=== PATIENT | female | born 1960 | race Caucasian/White ===

== ENCOUNTER 2022-11-12 10:00 | Outpatient (RCR) | payer BC, SELFPAY ==
--- NOTE | 2022-10-22 18:57 | HP.OTEVAL_ITS ---
Patient's Visit Information Visit Information Visit Information: RAHEL KENNEDY is a 62 year old F, referred to Occupational Therapy by YOUNG RODRIGUEZ, with a diagnosis of Lymphedema as a result of obesity. Date of Evaluation: 10/22/22 Occupational Therapist: Jennifer Sandhu, SANNAR/Margie, CHT Subjective Subjective: Pt is a 62 year old who arrives with a lymphedema dx. Pt reports it has been quite a while since she has had the diagnosis. Pt reports she has tried 15-20 mmHg compression stockings with minimal improvement and they would keep getting bunched at ankles. Pt reports it decreases when laying in bed it helps. As had an EMG , unable to states results. Pt reports it is difficulty to go up steps, get in/out shower (no rails), and has difficulty getting in/out of bed. Pt reports it is difficult to stand a lot. Pt has a rollator, wear clogs throughout the day. Pt works 5 days a week (Tues-Sat) for [employer] and is sitting/standing throughout the day. Lives alone, driving, requires further assistance to help L leg SUV grabs legs o f pants to lift left into car Uses compensatory strategy to don shoes, have a hrad time bending over, bend over while standing to tie shoe Lymphedema (Circumferential Measure) Mid-foot: right 21 cm left 21.5 cm Ankle: right 24 cm left 27.8 cm Lower calf: right 29.5 cm left 38.5 cm Largest calf: right 48.5 cm left 53.5 cm Below knee: right 44 cm left 50 cm Above knee: right 57 cm left 59.5 cm Lower Exremity Comments: Pt left lower extremity > right left lower extremity Lower Limb Functional Index Lower Extremity Functional Score: 13 Goals Goal: Patient will demonstrate a 20% reduction in edema by discharge: Yes Goal: Patient will demonstrate adequate knowledge of self-bandaging by the end of the first week.: Yes Goal: Patient will demonstrate adequate knowledge of self-massage by the end of the second week.: Yes Goal: Patient will demonstrate adequate knowledge of skin care and precautions by the end of the first week.: Yes Goal: Patient will demonstrate adequate knowledge of therapeutic exercises by discharge.: Yes Goal: Patient will report: improvement in mobility while performing ADL/IADL tasks by stating 3 techniques she is utilizing by discharge. Goal: Patient will select an appropriate compression garment and demonstrate adequate knowledge of correct donning technique, care and wearing schedule by discharge.: Yes Goal: Patient will voice understanding of need to replace compression garment every four to six months by discharge.: Yes Goal: Patient will demonstrate ROM WFL by discharge.: Yes Rehabilitation General Assessment: Pt seen for OT eval for lymphdema. Pt presents with difficulty walking far distances and is wheeled back to OT area in a wheelchair. Pt presents with left lower extremity greater in circumference than right. Lymphedema in her BLE is limiting her ability to perform ADL and IADLs. Pt will benefit from skilled OT services for 2-3 more visits for life-long education and ability to monitor progress with lymphedema management. Pt educated in the diagnosis of lymphedema, self-massage, adaptive equipment to increase safety, and possible garments to aid in lymphedema management. Pt verbalizes understanding and agreeable to POC. Therapy session was directly supervised and doc. approved by Jennifer Sandhu OTR/Margie,CHT Rehabilitation Potential: Fair Anticipated Interventions Anticipated Interventions: Edema Control, Joint Protection/Energy Conservation, Ergonomic Education, Education re assistive Equipment, Education re Diagnosis, Manual Lymph Drainage, Education re Skin Care and Precautions, Education re Self Massage Techniques, Education re Correct Donning Tech,Care&Wearing Sched Comp Garments and Home Program Visit Plan Frequency: 2-3 more visits TEXT: Thank you for the opportunity to evaluate your patient. For Medicare and Medicare HMO plans, please review the plan of care and approve it. It will need to be FAXED BACK to us at [phone] for Medicare purposes. Please let me know if there are questions or concerns regarding this plan of care. Physician Signature: Date:
--- NOTE | 2022-11-12 18:07 | HP.OTDCSUM ---
Discharge Summary D/C Summary: It has been my pleasure to treat RAHEL KENNEDY under orders from YOUNG RODRIGUEZ, for the diagnosis of Lymphedema as a result of obesity for a total of 3 visit(s). Please see the following information for a summary of their discharge status. Overall Improvement % Improvement: 70 Objective Objective/Function: LLE Mid foot: 22 cm Ankle: 26.5 cm Lower Calf: 33.5 cm Mid Calf: 52cm Below knee: 46cm Above knee: 56.5cm Goals Patient Goals: Decrease Swelling/Stiffness, Learn to Manage Lymphedema, Increase ROM, Learn how to Manage Lymphedema and Learn how to Apply Compression Stockings Goal: Patient will demonstrate a 20% reduction in edema by discharge: Yes Goal: Patient will demonstrate adequate knowledge of self-bandaging by the end of the first week.: Yes Goal: Patient will demonstrate adequate knowledge of self-massage by the end of the second week.: Yes Goal: Patient will demonstrate adequate knowledge of skin care and precautions by the end of the first week.: Yes Goal: Patient will demonstrate adequate knowledge of therapeutic exercises by discharge.: Yes Goal: Patient will report: improvement in mobility while performing ADL/IADL tasks by stating 3 techniques she is utilizing by discharge. Goal: Patient will select an appropriate compression garment and demonstrate adequate knowledge of correct donning technique, care and wearing schedule by discharge.: Yes Goal: Patient will voice understanding of need to replace compression garment every four to six months by discharge.: Yes Goal: Patient will demonstrate ROM WFL by discharge.: Yes Plan Plan: Discharge D/C Information Discharge Comments: Pt seen for 3 skilled OT sessions for lymphedema management. Therapist provided patient with verbal and written lymph stim exercises, self lymph massage, and diagnosis for further life long management. Pt verbalizes understanding of all lymphedema management skills and demonstrates follow through by decreased measurements throughout session. Pt met all goals. Pt agreeable to discharge at this time. Therapy session was directly supervised and doc. approved by Jennifer ELLIS/ASH Hanson. d/c sentence: If there are questions or concerns regarding this patient's occupational therapy, please fell free to call me at [phone]. Thank you for the referral of this patient. Sincerely, RHONDA Pardo/Margie, ASH
== END 2022-11-12 19:00 | disposition home or self-care (01) ==
LOC: OT 10:00
DX: I89.0 Lymphedema, not elsewhere classified (principal)
CPT/HCPCS: 97166; 97530